=== PATIENT | male | born 1950 | race Caucasian/White ===

== ENCOUNTER 2016-11-26 16:39 | Emergency (ER) | payer MEDICARE, OTHER ==
--- NOTE | 2016-11-26 17:13 | ER Document Report ---
ED Medical Screen (RME) - General Chief Complaint: Leg Swelling Stated Complaint: LEG SWELLING Time Seen by Provider: 11/26/16 17:00 Mode of Arrival: Ambulatory Information source: Patient TRAVEL OUTSIDE OF THE [place] IN LAST 30 DAYS: No - HPI Onset: This morning Onset/Duration: Gradual Quality of pain: Dull, Pressure Associated Symptoms: Cough (nonproductive), Hurts to breath Exacerbated by: Movement, Walking Relieved by: Remaining still Similar symptoms previously: No Recently seen / treated by doctor: No - Related Data Smoking: Cigarettes, Less than 1 pack/day Frequency of alcohol use: Occasional Drug Abuse: None Allergies/Adverse Reactions: atorvastatin [From Lipitor] Allergy (Verified 11/26/16 16:45) Past Medical History - General Information source: Patient - Social History Cigarette use (# per day): Yes Chew tobacco use (# tins/day): No Frequency of alcohol use: Occasional Drug Abuse: None Lives with: Alone Family history: None - Past Medical History Cardiac Medical History: Reports: Hx Hypertension Pulmonary Medical History: Reports: Hx COPD Neurological Medical History: Reports: None Endocrine Medical History: Reports: None Renal/ Medical History: Reports: None. Denies: Hx Peritoneal Dialysis Malignancy Medical History: Reports None GI Medical History: Reports: None Musculoskeltal Medical History: Reports None Psychiatric Medical History: Reports: None Surgical Hx: Negative Review of Systems - Review of Systems Constitutional: denies: Chills, Diaphoresis, Fever EENT: No symptoms reported Cardiovascular: See HPI, Edema Respiratory: See HPI Gastrointestinal: No symptoms reported Genitourinary: No symptoms reported Musculoskeletal: No symptoms reported Skin: No symptoms reported Neurological/Psychological: No symptoms reported Physical Exam - Vital signs Vitals: Temp Pulse Resp BP Pulse Ox 98.1 F 109 H 18 144/98 H 97 11/26/16 16:45 11/26/16 16:45 11/26/16 16:45 11/26/16 16:45 11/26/16 16:45 Interpretation: Hypertensive, Tachycardic. No: Hypoxic, Tachypneic - General General appearance: Appears well, Alert In distress: None - Extremities Calf: Tender - LEFT, Other - EDEMA LEFT Course - Vital Signs Vital signs: Temp Pulse Resp BP Pulse Ox 98.1 F 109 H 18 144/98 H 97 11/26/16 16:45 11/26/16 16:45 11/26/16 16:45 11/26/16 16:45 11/26/16 16:45
--- NOTE | 2016-11-26 17:32 | ER Document Report ---
ED Extremity Problem, Lower - General Mode of Arrival: Ambulatory Information source: Patient TRAVEL OUTSIDE OF THE [place] IN LAST 30 DAYS: No - HPI Patient complains to provider of: Pain, Swelling. No: Injury Location: Leg Occurred: This afternoon - Refer to HPI Notes <NITISH SCRUGGS - Last Filed: 11/26/16 18:15> <ACACIA ESCALANTE - Last Filed: 11/26/16 20:52> - General Chief Complaint: Leg Swelling Stated Complaint: LEG SWELLING Time Seen by Provider: 11/26/16 17:00 Notes: Patient is a 66 year old male presenting to the emergency department for left leg pain that was onset this afternoon. Patient has swelling and pain to his left lower extremity. Patient states the pain radiates up into his back and chest. Patient denies any injury or trauma. Patient also complains of some shortness of breath and patient has COPD. Patient also has a history of anxiety , hypertension, hypercholesterolemia. Patient was being treated for his hypercholesterolemia and he was found to be allergic to statins; therefore the patient's hypercholesterolemia is not being treated. Patient just moved to this area in September 2016 and states he is waiting to see the [facility] for his first appointment. (NITISH SCRUGGS) - Related Data Allergies/Adverse Reactions: atorvastatin [From Lipitor] Allergy (Verified 11/26/16 16:45) Past Medical History - General Information source: Patient - Social History Smoking Status: Current Every Day Smoker Cigarette use (# per day): Yes - <1 ppd Chew tobacco use (# tins/day): No Frequency of alcohol use: Occasional Drug Abuse: None Lives with: Alone Family History: None Patient has suicidal ideation: No Patient has homicidal ideation: No - Past Medical History Cardiac Medical History: Reports: Hx Hypertension Pulmonary Medical History: Reports: Hx COPD Surgical Hx: Negative <NITISH SCRUGGS - Last Filed: 11/26/16 18:15> Review of Systems - Review of Systems Constitutional: No symptoms reported EENT: No symptoms reported Cardiovascular: No symptoms reported Respiratory: See HPI, Cough, Short of breath Gastrointestinal: No symptoms reported Genitourinary: No symptoms reported Male Genitourinary: No symptoms reported Musculoskeletal: See HPI Skin: See HPI Hematologic/Lymphatic: No symptoms reported Neurological/Psychological: No symptoms reported -: Yes All other systems reviewed and negative <NITISH SCRUGGS - Last Filed: 11/26/16 18:15> Physical Exam - Vital signs Interpretation: Hypertensive <NITISH SCRUGGS - Last Filed: 11/26/16 18:15> <ACACIA ESCALANTE - Last Filed: 11/26/16 20:52> - Vital signs Vitals: Temp Pulse Resp BP Pulse Ox 98.1 F 109 H 18 144/98 H 97 11/26/16 16:45 11/26/16 16:45 11/26/16 16:45 11/26/16 16:45 11/26/16 16:45 - Notes Notes: GENERAL: Alert, interacts well. No acute distress. HEAD: Normocephalic, atraumatic. EYES: Appear normal. Pupils equal, round, and reactive to light. ENT: Moist mucus membranes, tongue midline. NECK: Full range of motion. Supple. Trachea midline. LUNGS: Clear to auscultation bilaterally, no wheezes, rales, or rhonchi. No respiratory distress. HEART: Regular rate and rhythm. No murmurs, gallops, or rubs. ABDOMEN: Soft, non-tender. Non-distended. Normal bowel sounds. EXTREMITIES: Moves all 4 extremities spontaneously. Right lower extremity: no edema, FROM, normal strength and appearance. Left lower extremity: left calf is swollen especially over the pretibial surface area. No swelling over the left foot, ankle, or knee. Left calf is not hard or firm. Tenderness with palpation over the anterior tibial and the medial aspect of the thigh. No tenderness to the left knee. No pain with flexion of the foot. Negative Gabe's sign. Small area of erythema to the lower anterior earl. NEUROLOGICAL: Alert and oriented x3. Normal speech. No focal neurological deficits. GSC 15. PSYCH: Normal affect, normal mood. SKIN: Warm, dry, normal turgor. (NITISH SCRUGGS) Course - Laboratory Result Diagrams: 11/26/16 17:15 11/26/16 17:15 <NITISH SCRUGGS - Last Filed: 11/26/16 18:15> - Laboratory Result Diagrams: 11/26/16 17:15 11/26/16 17:15 - Diagnostic Test Radiology reviewed: Image reviewed, Reports reviewed - Venous Doppler is negative for DVT. There is considerable reflux. <ACACIA ESCALANTE - Last Filed: 11/26/16 20:52> - Vital Signs Vital signs: Temp Pulse Resp BP Pulse Ox 98.1 F 109 H 18 144/98 H 97 11/26/16 16:45 11/26/16 16:45 11/26/16 16:45 11/26/16 16:45 11/26/16 16:45 Discharge <NITISH SCRUGGS - Last Filed: 11/26/16 18:15> <ACACIA ESCALANTE - Last Filed: 11/26/16 20:52> - Discharge Clinical Impression: Edema of left lower extremity Condition: Stable Disposition: HOME, SELF-CARE Additional Instructions: Venous Doppler done on your swollen lower extremity was negative for blood clots. The lab work done also had a negative test for blood clotting. The venous Doppler did show significant reflux in the vein system which will lead to swelling if you are on your feet for any length of time. You should elevate your feet above your heart all the time and limit walking and standing. [facility] if the swelling does not improve. RETURN TO THE EMERGENCY ROOM IF ANY NEW OR WORSENING SYMPTOMS. Scribe Attestation: 11/26/16 20:52 I personally performed the services described in the documentation, reviewed and edited the documentation which was dictated to the scribe in my presence, and it accurately records my words and actions. (ACACIA ESCALANTE) Scribe Documentation - Scribe Written by Baldo:: Baldo Juarez, 11/26/2016 17:51 acting as scribe for :: Jaun <NITISH SCRUGGS - Last Filed: 11/26/16 18:15>
[2016-11-26 17:39] LABS: ABSOLUTE BASOPHILS # (AUTO) 0.1 10^3/uL (0.0-0.2); ABSOLUTE EOSINOPHILS # (AUTO) 0.2 10^3/uL (0.0-0.6); ABSOLUTE LYMPHOCYTES (AUTO) 2.6 10^3/uL (0.5-4.7); ABSOLUTE MONOCYTES (AUTO) 0.8 10^3/uL (0.1-1.4); ABSOLUTE NEUT (AUTO) 4.8 10^3/uL (1.7-8.2); BASOPHILS % (AUTO) 1.2 % (0-2); EOSINOPHILS % (AUTO) 2.6 % (0-6); LYMPHOCYTES % (AUTO) 30.2 % (13-45); MEAN CORPUSCULAR HEMOGLOBIN 30.1 pg (27.0-33.4); MEAN CORPUSCULAR HGB CONC 33.4 g/dL (32.0-36.0); MEAN CORPUSCULAR VOLUME 90 fl (80-97); MONOCYTES % (AUTO) 9.3 % (3-13); RED BLOOD COUNT 4.65 10^6/uL (4.35-5.55); RED CELL DISTRIBUTION WIDTH 13.2 % (11.5-14.0); SEGMENTED NEUTROPHILS % (AUTO) 56.7 % (42-78); WHITE BLOOD COUNT 8.5 10^3/uL (4.0-10.5)
[2016-11-26 17:52] LABS: D-DIMER 0.34 ug/mL (0.00-0.50)
[2016-11-26 17:56] LABS: ALANINE AMINOTRANSFERASE 23 U/L (21-72); ALBUMIN 4.2 g/dL (3.5-5.0); ALKALINE PHOSPHATASE 64 U/L (38-126); ANION GAP 11 (5-19); ASPARTATE AMINO TRANSFERASE 22 U/L (17-59); BILIRUBIN,DIRECT 0.3 mg/dL (0.0-0.4); BILIRUBIN,TOTAL 0.6 mg/dL (0.2-1.3); BLOOD UREA NITROGEN 15 mg/dL (7-20); CALCIUM 9.6 mg/dL (8.4-10.2); CARBON DIOXIDE 23 mmol/L (22-30); CHLORIDE 107 mmol/L (98-107); CREATINE KINASE 169 U/L (55-170); CREATININE RESULT 0.97 mg/dL (0.52-1.25); GLUCOSE 97 mg/dL (75-110); POTASSIUM 4.6 mmol/L (3.6-5.0); SODIUM 140.6 mmol/L (137-145); TOTAL PROTEIN 7.1 g/dL (6.3-8.2)
--- NOTE | 2016-11-26 18:03 | RADIOLOGY REPORT (SQ) ---
EXAM DESCRIPTION: CHEST SINGLE VIEW COMPLETED DATE/TIME: 11/26/2016 5:54 pm REASON FOR STUDY: DYSPNEA, TACHYCARDIA COMPARISON: None. NUMBER OF VIEWS: One view. TECHNIQUE: Single frontal radiographic view of the chest acquired. LIMITATIONS: None. FINDINGS: LUNGS AND PLEURA: No opacities, masses or pneumothorax. No pleural effusion. MEDIASTINUM AND HILAR STRUCTURES: No masses. Contour normal. HEART AND VASCULAR STRUCTURES: Heart normal in size. Normal vasculature. BONES: No acute findings. HARDWARE: None in the chest. OTHER: No other significant finding. IMPRESSION: NO SIGNIFICANT RADIOGRAPHIC FINDING IN THE CHEST. TECHNICAL DOCUMENTATION: JOB ID: [id number] [employer]- All Rights Reserved
[2016-11-26 21:36] VITALS: BP 141/94
--- NOTE | 2016-11-26 21:51 | EKG REPORT ---
SEVERITY:- NORMAL ECG - SINUS RHYTHM : Confirmed by: Duke Garnica MD 26-Nov-2016 21:51:14
--- NOTE | 2016-11-27 13:50 | XCELERA REPORT ---
[address] [address] Lower Extremity Venous Evaluation Name: PATRICIA PHELPS Age: 66 yrs Gender: Male : 1950 Patient Status: Emergency Patient Location: ER Study Date: 11/26/2016 07:47 PM Procedure: Color flow and duplex imaging of the veins of the left lower extremity as well as the right Common Femoral vein. Reason For Study: PAIN SWELLING L. LOWER EXTREMITY Ordering Physician: PITER AGUAYO Performed By: Da Brown Right Sided Venous Evaluation The right common femoral vein is fully compressible. Spontaneous and phasic flow is present in the right common femoral vein. Left Sided Venous Evaluation Reflux noted in the Greater saphenous vein below the knee. Otherwise normal vessel filling wall to wall, compression and augmentation as well as Colour flow down to the infrageniculate veins. Critical Findings Called in to the ER. Interpretation Summary No duplex evidence of DVT or obstruction in the left lower extremity nor in the right Common Femoral vein. Reflux noted in the left Greater Saphenus vein. : PITER AGUAYO > Chacho Pandey
== END 2016-11-26 21:36 | disposition home or self-care (01) ==
LOC: ER 16:39
DX: R60.0 Localized edema (principal); M79.89 Other specified soft tissue disorders; M79.605 Pain in left leg; R06.02 Shortness of breath; J44.9 Chronic obstructive pulmonary disease, unspecified; F41.9 Anxiety disorder, unspecified; I10 Essential (primary) hypertension; E78.00 Pure hypercholesterolemia, unspecified; F17.210 Nicotine dependence, cigarettes, uncomplicated
CPT/HCPCS: 36415; 71010; 80053; 82550; 85025; 85379; 85610; 93005; 93010; 93971; 99284